=== PATIENT | female | born 1985 | race African-American/Black ===

== ENCOUNTER 2018-02-22 12:07 | Outpatient (CLI) | payer OTHER ==
[2018-02-22] MEDS ORDERED: LACTATED RINGERS 500 ML IV ONE (13:30)
[2018-02-22 15:08] LABS: Bacteria,Urine 1+ /HPF (Negative); Bilirubin,Urine NEG (Negative); Blood,Urine NEG (Negative); Color,Urine Yellow (Yellow); Protein,Urine <15 mg/dL mg/dL (Negative); Urobilinogen,Urine < 2.0 mg/dL (<2.0)
[2018-02-22 15:46] VITALS: BP 109/67
--- NOTE | 2018-02-23 07:35 | Event Note ---
Date: 02/22/18 Brief note for triage visit 02/22/18: 33 year old at 30 6/7 weeks gestation presented to triage for vaginal discharge. Patient denies regular contractions, vaginal bleeding, abdominal pain , or any other problems. She reports active movement. EFM shows category 1 heart rate tracing. A few mild irregular contractions resolved with IV hydration. SSE performed: no pooling, no bleeding, thick white vaginal discharge noted. Fern test negative. UA indicates possible UTI. SVE done. Pt. not in active labor. Rx Terazol 3 vaginal cream and Macrobid called to [facility] on [address] Discussed with patient signs and symptoms of labor, warning signs of late , use of medication, daily movement counting, Advised pt. to follow up at OB clinic this week.
== END 2018-02-22 16:11 | disposition home or self-care (01) ==
LOC: TRG 12:07
PROVIDERS: ATTEND Obstetrics & Gynecology
DX: O47.02 False labor before 37 completed weeks of gestation, second trimester (principal); O24.414 Gestational diabetes mellitus in pregnancy, insulin controlled; O99.283 Endocrine, nutritional and metabolic diseases complicating pregnancy, third trimester; E03.9 Hypothyroidism, unspecified; Z3A.29 29 weeks gestation of pregnancy
CPT/HCPCS: 59025; 81001; 96360; J7120

== ENCOUNTER 2018-02-23 07:32 | Inpatient (IN) | payer OTHER ==
[2018-02-23] MEDS ORDERED: SUBLIMAZE IV PRN (08:31)
[2018-02-23] MEDS ORDERED: BRETHINE SUB-Q PRN (08:31)
[2018-02-23] MEDS ORDERED: BRETHINE IVP PRN (08:31)
--- NOTE | 2018-02-23 08:42 | History and Physical Report ---
History of Present Illness Date of examination: 02/23/18 Date of admission: 02/23/18 07:33 Chief complaint: Contractions History of present illness: 33yo G 5 P 2 1 1 3 @ 30 weeks 2 days here with c/o worsening contractions since yesterday. She is a [facility] patient. No records available. She reports h/o PTD at 30 wks and diabetes, managed with insulin. Request for records sent. Past History Past Medical History: diabetes (GDM), thyroid disease Past Surgical History: appendectomy, cholecystectomy Family/Genetic History: other (Down Syndrome (son)) Social history: , lives with family, full code. denies: smoking, alcohol abuse - Obstetrical History Expected Date of Delivery: 05/02/18 Actual Gestation: 30 Week(s) 2 Day(s) : 5 Para: 3 Hx # Term Pregnancies: 2 Number of Pregnancies: 1 Spontaneous Abortions: 1 Induced : 0 Number of Living Children: 3 Medications and Allergies Allergies Allergy/AdvReac Type Severity Reaction Status Date / Time No Known Allergies Allergy Verified 02/22/18 12:47 Home Medications Medication Instructions Recorded Confirmed Last Taken Type No Known Home Medications [No 02/23/18 02/23/18 Unknown History Reported Home Medications] Active Meds: Active Medications Ephedrine Sulfate (Ephedrine Sulfate) 10 mg IV Q2M PRN PRN Reason: Hypotension Fentanyl (Sublimaze) 100 mcg IV Q2H PRN PRN Reason: Labor Pain Ampicillin Sodium (Polycillin/Ns 2 Gm/100 Ml) 2 gm in 100 mls @ 100 mls/hr IV ONCE ONE; Protocol Stop: 02/23/18 09:30 Lactated Ringer's (Lactated Ringers) 1,000 mls @ 125 mls/hr IV DIRECT ANATOLIY Oxytocin/Sodium Chloride (Pitocin/Ns 20 Unit/1000ml Drip) 20 units in 1,000 mls @ 125 mls/hr IV DIRECT ANATOLIY Lidocaine (Xylocaine 2%) 20 ml INFILTRATI ONCE ONE Stop: 02/23/18 08:32 Mineral Oil (Mineral Oil) 30 ml PO QHS PRN PRN Reason: Constipation Terbutaline Sulfate (Brethine) 0.25 mg SUB-Q ONCE PRN PRN Reason: Hyperstimulation/Hypertonicity Terbutaline Sulfate (Brethine) 0.25 mg IVP ONCE PRN PRN Reason: Hyperstimulation/Hypertonicity Review of Systems All systems: negative - Obstetrical FHR: auscultation normal, category 1 FHR comments: baseline 150, moderate variability, + accels, no decels Uterine Contraction Monitor Mode: External Cervical Dilatation: 6.5 Cervical Effacement Percentage: 80 station: -1 Uterine Contraction Frequency (min): 2 Uterine Contraction Pattern: Regular Results Result Diagrams: 02/23/18 13:48 All other labs normal. Assessment and Plan - Patient Problems (1) 30 weeks gestation of Current Visit: Yes Status: Acute (2) labor in third trimester Current Visit: Yes Status: Acute Qualifiers: Fetus number: single or unspecified fetus Plan to address problem: Admit to L&D Dr. Burden consulted (currently en route to hospital) Order received to give 1 dose of Terbutaline for tocolysis, start course of Celestone, start antibiotic therapy
[2018-02-23] MEDS ORDERED: CELESTONE SOLUSPAN IM ONE (08:49)
[2018-02-23] MEDS ORDERED: XYLOCAINE 2% INFILTRATI ONE (09:00)
[2018-02-23] MEDS ORDERED: POLYCILLIN/NS 2 GM/100 ML 2 GM/100 ML BAG IV ONE (09:00)
[2018-02-23] MEDS ORDERED: CELESTONE SOLUSPAN IM SCH (09:00)
[2018-02-23] MEDS ORDERED: LACTATED RINGERS 1,000 ML IV SCH ×2 (09:00→10:00)
[2018-02-23] MEDS ORDERED: MAGNESIUM SULFATE 4GM/100ML 4 GM/100 ML BAG IV ONE ×2 (09:29)
[2018-02-23] MEDS ORDERED: MAGNESIUM SULFATE 40GM/1000ML 40 GM/1,000 ML BAG IV ONE (09:31)
[2018-02-23 09:33] LABS: Hematocrit 39.1 % (30.3-42.9); Mean Corpuscular HGB Conc 33 % (30-34); Mean Corpuscular Hemoglobin 30 pg (28-32); Mean Corpuscular Volume 90 fl (79-97); Platelet Count 197 K/mm3 (140-440); Red Blood Count 4.35 M/mm3 (3.65-5.03); Red Cell Distribution Width 14.5 % (13.2-15.2)
--- NOTE | 2018-02-23 09:35 | Event Note ---
33yo F at 30 2/7 weeks presented in active labor 7 cm dilated. I was called to evaluate and patient had previously received terbutaline for tocolysis , fentanyl for pain. Betamethasone and magnesium sulfate was ordered and administered prior to delivery. She states she was nida for 2 days with increased intensity last night. She reports vaginal bleeding last evening but no loss of fluid. She is writhing in pain and requesting more pain medicine. seismic interpreter was used to discuss status of delivery with patient. She was made aware that due to the progression of labor to complete there was not enough time for an epidural. Dr. Earl, NICU, staff was present and spoke with patient concerning expectations of infant with prematurity. Her has been complicated with uncontrolled gestational diabetes mellitus (1hr OGTT 366 and HgbA1C 8.4%) on insulin and hypothyroidism on medication. She is a patient at [facility] and transferred care there at 18 weeks from [place], [place].
[2018-02-23] MEDS: PITOCin/NS 20 UNIT/1000ML DRIP 20 UNITS/1,000 ML BAG IV SCH ×2 (10:00→10:49)
[2018-02-23] MEDS ORDERED: NORCO 5/325 PO PRN (10:28)
[2018-02-23] MEDS ORDERED: TYLENOL PO PRN (10:28)
[2018-02-23] MEDS ORDERED: BENADRYL PO PRN (10:28)
[2018-02-23] MEDS ORDERED: MILK OF MAGNESIA PO PRN (10:28)
[2018-02-23] MEDS ORDERED: TUCKS PAD TP PRN (10:28)
[2018-02-23] MEDS ORDERED: DULCOLAX PR PRN (10:28)
[2018-02-23] MEDS ORDERED: ZOFRAN IV PRN (10:28)
[2018-02-23] MEDS ORDERED: LANSINOH TP PRN (10:28)
--- NOTE | 2018-02-23 10:42 | Procedure Note ---
OB Delivery Note - Delivery Date of Delivery: 02/23/18 Surgeon: JACQUELINE VILLEDA Estimated blood loss: 100cc - Vaginal Intrapartum events: labor-<37 weeks Delivery induction: none Delivery monitor: external FHT Route of delivery: other (en caul) Delivery placenta: spontaneous Delivery cord: 3 umbilical vessels Episiotomy: none Delivery laceration: none Anesthesia: other (fentanyl) Delivery comments: 33yo at 30 wks 2days delivered a viable male with delayed cord clamping (45sec) and cord milking. Mother presented in active labor and progressed to active labor. She received tocolytics, magnesium for neuroprotection and betamethasone. She delivered en caul, membrane opened patient bulb suctioned and spontaneous cried. Cord clamped and handed to awaiting NICU staff. Cord gasses collected. Placenta delivered spontaneously and sent to pathology. Pitocin IV was administered. NICU staff was present for delivery. Bladder was emptied via catheter. Uterus was noted to be firm. Weight 1630g 3lb 9oz Apgars 6/8 - Infant B at 1 minute: 6 at 5 minutes: 8 Infant Gender: Male (Weight 3lb 9oz)
[2018-02-23] MEDS ORDERED: SODIUM CHLORIDE FLUSH SYRINGE 10 ML IV NR (11:00)
[2018-02-23] MEDS: MOTRIN PO SCH ×3 (13:00→23:30)
[2018-02-23 14:04] LABS: Hematocrit 34.3 % (30.3-42.9); Hemoglobin 11.4 gm/dl (10.1-14.3)
[2018-02-23] MEDS ORDERED: MINERAL OIL PO PRN (22:00)
[2018-02-24] MEDS: MOTRIN PO SCH ×3 (05:18→18:03)
--- NOTE | 2018-02-24 09:54 | Progress Note ---
Assessment and Plan A: PPD#1 s/p labor/delivery Pre-GDM (uncontrolled in ; Insulin) Sugars not being checked on PP. Random BS 194 Stable Infant in NICU () P: Continue Routine PP orders Consult Dr. Lucas for Insulin sliding scale orders Anticipate discharge home in 24-48 hrs Subjective - Subjective Date of service: 02/24/18 Principal diagnosis: PPD1 s/p labor/delivery, Diabeties (insulin) Interval history: See H&P and delivery note Patient reports: appetite normal, voiding normally, pain well controlled, flatus , ambulating normally : in NICU ( 30weeks 2 days) Objective - Vital Signs Latest vital signs: Vital Signs Temp Pulse Resp BP BP Pulse Ox 02/24/18 07:55 98.3 F 81 20 101/60 97 02/24/18 01:05 98.8 F 103 H 18 108/66 95 02/23/18 20:30 98.2 F 98 H 18 104/62 93 02/23/18 16:48 98.0 F 98 H 18 114/68 96 02/23/18 11:50 99.6 F 114 H 20 95/70 95 02/23/18 11:38 102 H 131/65 02/23/18 11:23 102 H 138/68 02/23/18 11:08 108 H 136/73 02/23/18 10:53 108 H 125/67 02/23/18 10:38 106 H 119/59 02/23/18 10:23 100 H 126/62 02/23/18 10:16 101 H 94 02/23/18 10:14 106 H 94 02/23/18 10:11 107 H 94 02/23/18 10:08 106 H 123/60 02/23/18 10:06 107 H 94 02/23/18 10:01 112 H 94 02/23/18 10:00 109 H 94 02/23/18 09:56 115 H 94 02/23/18 09:53 116 H 133/71 93 02/23/18 09:51 120 H 97 Intake and Output 02/23/18 02/24/18 02/24/18 23:59 07:59 15:59 Intake Total 840 Output Total 1100 Balance -260 Intake: Oral 600 Intake, Free Water 240 Output: Urine 1100 Void 1100 Other: Total, Intake Amount 360 Total, Output Amount 500 - Exam Breasts: Present: normal Cardiovascular: Present: Regular rate, Normal S1, Normal S2, No murmurs Lungs: Present: Clear to auscultation, Normal air movement Abdomen: Present: normal appearance, soft. Absent: distention Vulva: both: normal Uterus: Present: firm, fundal height above umbilicus (-1) Extremities: Present: normal Deep Tendon Reflex Grade: Normal +2 - Labs Labs: Abnormal lab results 02/23/18 02/23/18 Range/Units 10:31 10:38 POC ABG pH 7.293 L (7.35-7.45) POC ABG pCO2 58.1 H (35-45) POC ABG pO2 14 L 25 L (80-105)
[2018-02-24] MEDS ORDERED: D50W (25GM) Syringe IV PRN (10:30)
[2018-02-24] MEDS: HumuLIN R SUB-Q SCH ×2 (12:07→18:06)
[2018-02-25] MEDS: MOTRIN PO SCH ×3 (00:31→11:01)
[2018-02-25] MEDS: HumuLIN R SUB-Q SCH ×3 (00:32→12:00)
--- NOTE | 2018-02-25 10:50 | Progress Note ---
Assessment and Plan - Patient Problems (1) delivery without spontaneous labor Current Visit: Yes Status: Acute Qualifiers: Fetus number: single or unspecified fetus Qualified Code(s): O60.10X0 - labor with delivery, unspecified trimester, not applicable or unspecified Plan to address problem: PPD 2 - stable Continue routine PP orders Discharge to home later today Follow-up at [facility] in 5 days to review glucose log and revise insulin dosage (2) Pregestational diabetes mellitus, modified White class B Current Visit: Yes Status: Acute Plan to address problem: Last blood glucose 130 - on sliding scale insulin Consulted Dr. Oliveira about plan of care/discharge. She recommended patient continue ADA diet, home bood glucose checks 4x/d and follow up at the clinic on 03/02/18. Subjective - Subjective Date of service: 02/25/18 Principal diagnosis: PPD #2, s/p labor/delivery, Pre-gestational DM ( insulin) Patient reports: appetite normal, voiding normally, pain well controlled, ambulating normally, no dizzy ambulation Dillon: doing well, in NICU Objective - Vital Signs Latest vital signs: Vital Signs Temp Pulse Resp BP BP Pulse Ox 02/25/18 00:09 97.5 F L 79 18 110/64 96 02/24/18 16:36 98.2 F 69 20 104/63 100 Intake and Output 02/24/18 02/25/18 02/25/18 23:59 07:59 15:59 Intake Total 360 Balance 360 Intake: Intake, Free Water 360 Other: # Voids Void 4 - Exam Cardiovascular: Present: Regular rate Abdomen: Present: normal appearance, soft Vulva: both: normal Uterus: Present: normal, firm, fundal height at umbilicus Extremities: Present: normal - Labs Labs: Abnormal lab results 02/24/18 02/24/18 02/25/18 Range/Units 11:54 18:03 00:07 POC Glucose 181 H 186 H 199 H (70-105) 02/25/18 Range/Units 05:54 POC Glucose 130 H (70-105)
--- NOTE | 2018-02-25 13:31 | Discharge Summary ---
Providers - Providers Date of Admission: 02/23/18 07:33 Date of discharge: 02/25/18 Attending physician: SILVANO BARTH MD Primary care physician: SILVANO BARTH MD Hospitalization Reason for admission: active labor, IUP - , labor Delivery: Episiotomy: none Laceration: none Other procedures: none complications: none Discharge diagnosis: delivery baby: male Hospital course: Uncomplicated Condition at discharge: Stable Disposition: DC-01 TO HOME OR SELFCARE - Discharge Diagnoses (1) delivery without spontaneous labor Status: Acute Qualifiers: Fetus number: single or unspecified fetus Qualified Code(s): O60.10X0 - labor with delivery, unspecified trimester, not applicable or unspecified (2) Pregestational diabetes mellitus, modified White class B Status: Acute Plan - Provider Discharge Summary Activity: routine, no sex for 6 weeks, no heavy lifting 4 weeks, no strenuous exercise Diet: routine Instructions: routine Additional instructions: [] Smoking cessation referral if applicable(refer to patient education folder for contact #) [] Refer to [facility] Booklet Call your doctor immediately for: * Fever > 100.5 * Heavy vaginal bleeding ( >1 pad per hour) * Severe persistent headache * Shortness of breath * Reddened, hot, painful area to leg or breast * Drainage or odor from incision. * Keep incision clean and dry at all times and follow doctor's instructions regarding bathing/showering - Follow up plan Follow up: SILVANO BARTH MD [Primary Care Provider] - 7 Days (Follow up at [facility] on 03/02/18 to review glucose log/insulin.)
[2018-02-25 18:20] VITALS: BP 119/71
== END 2018-02-25 17:40 | disposition home or self-care (01) | DRG 775 ==
LOC: TRG 07:32 → LD 07:33 → TRG 07:34 → LD 08:02 → OB 12:02
PROVIDERS: ADMIT Obstetrics & Gynecology; ATTEND Obstetrics & Gynecology
PROC: 10E0XZZ Delivery of Products of Conception, External Approach (ICD-10-PCS; principal; 2018-02-23)
DX: O60.14X0 Preterm labor third trimester with preterm delivery third trimester, not applicable or unspecified (principal); O99.284 Endocrine, nutritional and metabolic diseases complicating childbirth; E03.9 Hypothyroidism, unspecified; O24.424 Gestational diabetes mellitus in childbirth, insulin controlled; Z3A.30 30 weeks gestation of pregnancy; Z37.0 Single live birth; Z90.49 Acquired absence of other specified parts of digestive tract; Z84.89 Family history of other specified conditions
CPT/HCPCS: 36415; 82803; 82962; 85014; 85018; 85027; 86592; 86850; 86900; 86901; 88307; 99211; G0463; J0290; J0702; J1815; J2590; J3010; J3105; J3475; J7120